=== PATIENT | female | born 1995 | race African-American/Black ===

== ENCOUNTER 2018-04-05 19:33 | Emergency (ER) | payer BC, OTHER ==
[~2018-04-05] VITALS: Ht 165.1 cm; Wt 53.1 kg
[2018-04-05 20:23] LABS: URINE BILIRUBIN NEGATIVE (Negative); URINE BLOOD TRACE (Negative); URINE CLARITY CLEAR; URINE COLOR YELLOW; URINE GLUCOSE-RANDOM* NEGATIVE (Negative); URINE KETONES TRACE (Negative); URINE LEUKOCYTES-REFLEX NEGATIVE (Negative); URINE NITRITE-REFLEX NEGATIVE (Negative); URINE PROTEIN (DIPSTICK) NEGATIVE (Negative); URINE SPECIFIC GRAVITY 1.025 (1.005-1.035); URINE UROBILINOGEN 0.2 E.U./dl (0.2-1.0)
[2018-04-05 20:37] LABS: ABSOLUTE NEUTROPHILS 6.8 thou/uL (1.4-8.2); BASOPHILS 0.3 % (0.0-2.0); EOSINOPHILS 2.3 % (0.0-3.0); HEMATOCRIT 37.3 % (37.0-47.0); HEMOGLOBIN 12.3 gm/dL (12.0-15.0); LYMPHOCYTES 28.8 % (24.0-44.0); MCH 25.9 pg (26.0-34.0); MCV 78.3 fL (80.0-100.0); MONOCYTES 8.5 % (1.0-8.0); PLATELET COUNT 227 thou/uL (150-400); POLYS 60.1 % (36.0-66.0); RBC 4.76 mil/uL (4.20-5.00); RDW 13.9 % (10.5-14.5); WBC 11.3 thou/uL (4.0-11.0)
[2018-04-05 20:44] LABS: CALCIUM 8.8 mg/dL (8.5-10.1); CREATININE 0.7 mg/dL (0.6-1.0); POTASSIUM 3.4 mmol/L (3.5-5.1)
[2018-04-05 20:50] LABS: ALBUMIN 4.1 g/dL (3.4-5.0); TOTAL BILIRUBIN 0.2 mg/dL (<0.1-1.0); TOTAL PROTEIN 8.2 g/dL (6.4-8.2)
[2018-04-05 21:18] VITALS: BP 131/82
== END 2018-04-05 21:32 | disposition left against medical advice (07) ==
LOC: ER 19:33
PROVIDERS: Physician Assistant
DX: O26.891 Other specified pregnancy related conditions, first trimester (principal); R10.30 Lower abdominal pain, unspecified; J45.909 Unspecified asthma, uncomplicated; K50.00 Crohn's disease of small intestine without complications; Z3A.00 Weeks of gestation of pregnancy not specified

== ENCOUNTER 2019-07-19 08:52 | Emergency (ER) | payer BC, OTHER ==
[~2019-07-19] VITALS: Ht 165.1 cm; Wt 54.0 kg
[2019-07-19] MEDS ORDERED: AUGMENTIN 875-1 EACH PO (08:57)
[2019-07-19 09:56] LABS: ABSOLUTE NEUTROPHILS 4.3 thou/uL (1.4-8.2); BASOPHILS 0.5 % (0.0-2.0); EOSINOPHILS 1.6 % (0.0-3.0); HEMATOCRIT 35.5 % (37.0-47.0); HEMOGLOBIN 11.3 gm/dL (12.0-15.0); LYMPHOCYTES 26.5 % (24.0-44.0); MCH 25.2 pg (26.0-34.0); MCV 78.6 fL (80.0-100.0); MONOCYTES 8.9 % (1.0-8.0); PLATELET COUNT 245 thou/uL (150-400); POLYS 62.5 % (36.0-66.0); RBC 4.51 mil/uL (4.20-5.00); RDW 13.5 % (10.5-14.5); WBC 6.9 thou/uL (4.0-11.0)
[2019-07-19 09:59] LABS: CALCIUM 9.2 mg/dL (8.5-10.1); CREATININE 0.6 mg/dL (0.6-1.0); POTASSIUM 3.5 mmol/L (3.5-5.1)
[2019-07-19 10:05] LABS: ALBUMIN 3.3 g/dL (3.4-5.0); TOTAL BILIRUBIN 0.3 mg/dL (<0.1-1.0); TOTAL PROTEIN 7.1 g/dL (6.4-8.2)
[2019-07-19 10:21] LABS: URINE BILIRUBIN NEGATIVE (Negative); URINE BLOOD 2+ (Negative); URINE CLARITY CLEAR; URINE COLOR YELLOW; URINE GLUCOSE-RANDOM* NEGATIVE (Negative); URINE KETONES NEGATIVE (Negative); URINE LEUKOCYTES-REFLEX NEGATIVE (Negative); URINE NITRITE-REFLEX NEGATIVE (Negative); URINE PROTEIN (DIPSTICK) NEGATIVE (Negative); URINE SPECIFIC GRAVITY 1.015 (1.005-1.035); URINE UROBILINOGEN 0.2 E.U./dl (0.2-1.0)
[2019-07-19 10:34] LABS: SQUAMOUS >10 Many /LPF (0-3)
[2019-07-19 10:35] LABS: CASTS None Seen /LPF (None Seen); CRYSTALS None Seen /LPF (None Seen)
[2019-07-19 10:38] LABS: URINE WBC-REFLEX 0-5 Rare /HPF (0-5)
[2019-07-19 10:39] LABS: BACTERIA-REFLEX 1-9 Few /HPF (None Seen)
[2019-07-19 12:30] VITALS: BP 135/79
[2019-07-19] MEDS ORDERED: ZOFRAN ODT4 MG PO (12:43)
== END 2019-07-19 13:00 | disposition home or self-care (01) ==
LOC: ER 08:52
PROVIDERS: Emergency Medicine
DX: K66.8 Other specified disorders of peritoneum (principal); R11.2 Nausea with vomiting, unspecified; J45.909 Unspecified asthma, uncomplicated; K50.90 Crohn's disease, unspecified, without complications